=== PATIENT | female | born 1995 ===

== ENCOUNTER 2024-06-20 13:17 | Outpatient (AMB) | payer OTHER, SELFPAY ==
--- NOTE | 2024-06-20 13:24 | A.OFFPC_ITS ---
Vital Signs 06/20/24 13:40 Height 5 ft 1.42 in Weight 164 lb 2 oz BMI 30.6 BP 108/70 Blood Pressure Location Rt brachial Position Sitting Respiration 14 Pulse 72 Pulse Source Pulse Oximeter Temp 99 F Temp Source Oral Pulse Oximetry (%) 97 Oxygen Delivery Method Room Air Intake Visit Reasons: DIRECTOR QUALITY ASSURANCE establish care Intake Note: New pateint visit Federal Appellate Clerk Required: Yes Federal Appellate Clerk Language: Maintainer [employer] Name: 164.2 Allergies No Known Allergies Allergy (Verified 06/20/24 13:33) Medication List - Last Reconciled 06/20/24 by Anay Hernandez PA-C carbamide peroxide 6.5% (Debrox) 5 drps otic (ear) left Q12H 5 days naproxen 500 mg PO Q12H PRN Tobacco use date assessed: 06/20/24 Dental Screening Dental Screen Date: 06/20/24 Did you have a dental visit in the last 12 months?: Yes Did you have a dental problem in the last 6 months where you did not have access to dental care?: No Was dental information given to patient?: Patient has dentist HPI DIRECTOR QUALITY ASSURANCE establish care HPI Details Patient is a 29-year-old female who presents today to establish care. She states she has not had a doctor in 3-4 years. She states that she wants a physical exam. She reports a small scalp lump on the left side of her head. She states it has been there for years and is overall unchanged in size and is non painful. She would like it removed. She states that she made this appointment because she has been having upper-mid back pain x 2 months. No injury. She states the by the end the pain is worse. She has not tried anything for the pain. She denies any radiation of the pain. 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 Her left ear feels clogged. No pain, fever or chills. She states her ear has been intermittently feeling blocked on and off since 2017. [place]: never went Fam hx: denies Federal Appellate Clerk: #[id number] PFSH Medical History (Updated 06/20/24 @ 14:22 by Anay Hernandez PA-C) Hx of bronchitis Family History (Updated 06/20/24 @ 13:47 by Elisabeth Angel CMA) Paternal Grandmother Cancer of unknown origin Paternal Grandfather Cancer of unknown origin Paternal Aunt Cancer of unknown origin Mother Asthma Father Cancer of unknown origin Mother HTN (hypertension) Social History Housing: House Patient Tobacco Use Status: Current everyday Tobacco user Cigarette Packs Per Day: 10 Years Smoked: 16 e-Cigarette/Vaping Use: Never Used service: No Current occupational status: employed Current occupation: [employer] Current occupational exposures/hazards: No Cognitive needs: No Hearing needs: No Vision needs: Yes (Glasses for reading, watching tv) Questionnaire PHQ-9 Over the last 2 weeks, how often have you been bothered by any of the following problems? 1. Little interest or pleasure in doing things: not at all 2. Feeling down, depressed, or hopeless: not at all 3. Trouble falling or staying asleep, or sleeping too much: not at all 4. Feeling tired or having little energy: not at all 5. Poor appetite or overeating: not at all 6. Feeling bad about yourself - or that you are a failure or have let yourself or your family down: not at all 7. Trouble concentrating on things, such as reading the newspaper or watching television: not at all 8. Moving or speaking so slowly that other people could have noticed. Or the opposite - being so fidgety or restless that you have been moving around a lot more than usual: not at all 9. Thoughts that you would be better off or of hurting yourself in some way: not at all Total score: 0 Depression Screening Interpretation: Negative Depression Screening Done: Yes 48975 - PHQ-9 Billing: Yes Source: Developed by Drs. Mendoza Jacob, Juju Vizcaino, Vimal Chan and colleagues, with an educational natasha from [employer]. Thrive Questionnaire Date Thrive assessed: 06/20/24 I am a: Patient What is your living situation today?: I have a steady place to live Within the past 12 months, did the food you bought not last and you didn't have the money to get more?: Never true Within the past 12 months, did you worry whether your food would run out before you got money to buy more?: Never true Do you have trouble paying for medicines?: No Do you have trouble getting transportation to medical appointments?: No Do you have trouble paying your heating and electricity bill?: No Do you have trouble taking care of your child, family member or friend?: No Do you have trouble with day-to-day activities such as bathing, preparing meals, shopping, managing finances, etc.?: No Are you currently unemployed and looking for a job?: No Are you interested in more education?: Yes Please select the resources that you would like help with: None Currently or been in a relationship where the following occur: No concerns reported THRIVE Score: 0 AUDIT C Alcohol Use Questionnaire (AUDIT-C) 1. How often do you have a drink containing alcohol?: Monthly or less 2. How many drinks containing alcohol do you have on a typical day when you are drinking?: 10 or more 3. How often do you have six or more drinks on one occasion?: Less than monthly Total Score: 6 JENI-7 AMB Questionnaire JENI-7 Date JENI - 7 assessed: 06/20/24 Feeling nervous, anxious, or on edge: 0 = Not at all Not being able to stop or control worryin = Not at all Worrying too much about different things: 1 = Several days Trouble relaxin = Several days Being so restless that it is hard to sit still: 2 = More than half the days Becoming easily annoyed or irritable: 0 = Not at all Feeling afraid as if something awful might happen: 0 = Not at all Total JENI-7 score (0-4 normal; 5-9 mild; 10-14 moderate; 15-21 severe): 4 Source: Developed by Drs. Mendoza Jacob, Juju Vizcaino, Vimal Chan and colleagues, with an educational natasha from [employer]. JENI-7 Assessment Billing JENI-7 Assessment Tool: JENI-7 Assessment 64240 Physical exam (Primary Care) Vital Signs: Last Vital Signs Temp 99 F 06/20/24 13:40 Pulse 72 06/20/24 13:40 Resp 14 06/20/24 13:40 BP 108/70 06/20/24 13:40 Pulse Ox 97 06/20/24 13:40 Oxygen Delivery Method Room Air 06/20/24 13:40 BMI result Body Mass Index 30.6 Depression Screening Interpretation: Negative Currently or been in a relationship where the following occur: No concerns reported Const Orientation/consciousness: patient oriented x3 HENMT Ears: hearing grossly normal bilaterally, TM normal on the right and unable to visualize TM (cerumen) on the left General nose exam: No nasal polyps present Face and sinus: Yes sinuses nontender Mouth: Normal oral and palatal mucosa present Eyes Pupils: Equal, round and reactive pupils present EOM: EOMs intact bilaterally Neck Neck: Yes full ROM and Yes no lymphadenopathy Thyroid: Thyroid normal Lymphatic: no lymphadenopathy noted Chest Chest palpation & inspection: normal inspection of the chest Resp Auscultation: clear to auscultation bilaterally Cardio Rate: regular rate Rhythm: regular rhythm Heart sounds: S1 normal heart sound present and S2 normal heart sound present Peripheral pulses: Peripheral pulses 2+ throughout GI Other: Soft, nontender Inspection: Yes normal to inspection Palpation (GI): Soft to palpation and Other GI palpation findings present (nontender, no cva tenderness) Auscultation: normoactive bowel sounds Rectal Exam - Female: deferred General: Yes no CVA tenderness Back/Spine/Pelvis Other: Nontender Back: no CVA tenderness Cervical Spine: cervical ROM normal Thoracic/Lumbar Spine: thoracic and lumbar spine normal to inspection, straight leg raise negative bilaterally and paraspinal muscle tenderness bilaterally in the upper thoracic, in the mid thoracic and in the lower thoracic Skin Other: There is a marble sized, mobile, fluid filled, subcutaneous lump noted on the left scalp General skin exam: no rashes or lesions noted Neuro General: patient oriented x3, gait normal and no focal motor deficits Cranial nerves: Yes Equal, round and reactive pupils present Motor exam (neuro): 5/5 motor strength present throughout Sensory Exam: double simultaneous stimulation for sensation normal Coordination: [id number] test normal and Romberg test negative Extrem General: Yes normal to inspection and Yes full ROM Psych Affect: normal affect Attitude: cooperative Thought process: Normal thought process present Thought content: Normal thought content present Insight: Good insight present (Psych) Judgement: Good judgement present (Psych) Coding Level of Care Code New Pt Prev Care 18-39yr(38469 Diagnoses Routine general medical examination at a health care facility Z00.00 Thoracic back pain M54.6 Lump of scalp R22.0 Impacted cerumen of left ear H61.22 Additional Codes JENI-7 Assessment Billing - JENI-7 Assessment Tool: JENI-7 Assessment 27562 ([id number]) Assessment & Plan Assessment & Plan (1) Routine general medical examination at a health care facility: Code(s): Z00.00 - Encounter for general adult medical examination without abnormal findings Plan: Health maintenance reviewed. Referral to certified adapted physical educator. Labs ordered today. I did spend more than an hour and 15 minutes in the room with her today. (2) Thoracic back pain: Code(s): M54.6 - Pain in thoracic spine Category: Medical Plan: X-ray ordered. We will try naproxen. I have encouraged stretching, massage therapy and follow up if anything worsens or changes or fails to improve. We will do a short term follow up (3) Lump of scalp: Code(s): R22.0 - Localized swelling, mass and lump, head Category: Medical Plan: Discussed with her that it does feel cystic. Referral to General surgery. (4) Impacted cerumen of left ear: Code(s): H61.22 - Impacted cerumen, left ear Category: Medical Plan: Debrox drops ordered. Follow up if no improvement or if anything worsens or changes. Orders: Orders XR thoracic spine 3V Today M54.6 - Pain in thoracic spine Comprehensive Met. Panel Today Z01.89 - Encounter for other specified special examinations Comprehensive [place]. Panel Fast Today Z01.89 - Encounter for other specified special examinations Lipid Panel Today Z01.89 - Encounter for other specified special examinations TSH reflex Free T4 Today Z01.89 - Encounter for other specified special examinations Referrals FIGURE SKATER Referral Z01.419 - Encounter for gynecological examination (general) (routine) without abnormal findings, Z01.89 - Encounter for other specified special examinations General Surgery Referral R22.0 - Localized swelling, mass and lump, head Medications: New carbamide peroxide 6.5% (Debrox) 5 drps otic (ear) left Q12H 5 days 15 mL 0RF naproxen 500 mg PO Q12H PRN 30 tabs 1RF pain
[2024-06-20 13:40] VITALS: BP 108/70; PULSE 72; RESP 14; TEMP 37.2; O2SAT 97; BMI 30.6
== END 2024-06-20 14:26 | disposition home or self-care (01) ==
PROVIDERS: PCP Physician Assistant; Visit Provider Physician Assistant
DX: Z00.00 Encounter for general adult medical examination without abnormal findings (principal); M54.6 Pain in thoracic spine; R22.0 Localized swelling, mass and lump, head; H61.22 Impacted cerumen, left ear

== ENCOUNTER → 2024-06-20 13:17 | Outpatient (BNVA) | payer OTHER, SELFPAY | PROVIDERS: PCP Physician Assistant; Visit Provider Physician Assistant | DX: Z00.01 Encounter for general adult medical examination with abnormal findings (principal); M54.6 Pain in thoracic spine; R22.0 Localized swelling, mass and lump, head; H61.22 Impacted cerumen, left ear | CPT/HCPCS: 96127 ==

== ENCOUNTER 2024-07-08 14:23 | Outpatient (REF) | payer OTHER, SELFPAY ==
[2024-07-08 16:48] LABS: Alanine Aminotransferase 24 U/L (0-31); Albumin Level 4.9 g/dL (3.5-5.0); Alkaline Phosphatase 54 U/L (39-117); Anion Gap 11 (12-20); Aspartate Amino Transferase 28 U/L (5-31); Bilirubin Total 0.9 mg/dL (0.0-1.0); Blood Urea Nitrogen 10 mg/dL (9-16); Calcium 9.5 mg/dL (8.4-10.2); Carbon Dioxide 29 mmol/L (22-29); Chloride 105 mmol/L (96-108); Cholesterol 120 mg/dL (<200); Estimated Glomerular Filt Rate > 60; Glucose Fasting 77 mg/dL (60-99); Glucose Random 75 mg/dL (60-115); HDL Cholesterol 46 mg/dL (>40); LDL Cholesterol Calculated 56 mg/dL (<100); Potassium 3.8 mmol/L (3.3-5.1); Sodium 141 mmol/L (135-145); Total Protein 8.2 g/dL (6.5-8.0); Triglycerides 92 mg/dL (<150)
[2024-07-08 17:04] LABS: TSH reflex Free T4 0.44 uIU/mL (0.32-4.0)
== END 2024-07-08 14:24 | disposition home or self-care (01) ==
LOC: HO.XRAY 14:23
PROVIDERS: PCP Physician Assistant; Visit Provider Physician Assistant
DX: Z01.89 Encounter for other specified special examinations (principal); Z13.6 Encounter for screening for cardiovascular disorders; M54.6 Pain in thoracic spine
CPT/HCPCS: 36415; 72072; 80053; 80061; 84443

== ENCOUNTER 2024-10-23 08:33 | Outpatient (AMB) | payer OTHER, SELFPAY ==
--- OUTSIDE RECORDS SUMMARY | 2024-10-23 08:36 | XMS_ITS | Clinical Summary ---
Author Organization [facility] ity Address [address] [place] [address] Care Team Providers Care Corporate Controller Name Role Phone Unavailable Primary Care Provider Unavailabl e Social History Tobacco Use Types Packs/Day Years Used Date Smoking Tobacco: Never Assessed Sex and Gender Information Value Date Recorded Sex Assigned at Not on file Gender Identity Not on file Sexual Orientation Not on file Plan of Treatment Health Maintenance Due Date Last Done Comments DTaP,Tdap,and Td Vaccines (1 - Tdap) 2013 Hepatitis B Vaccines (1 of 3 - 19+ 3-dose series) 2013 Cervical Cancer Screening: P ap Smear 2015 COVID-19 Vaccine (2023-2 5 season) 2024 Influenza Vaccine (#1) 2024 Depression Screening 06/27/2024 HIV Screening 06/27/2024 Hepatitis C Screening 06/27/2024 Social Influencers of Health Screening 06/27/2024 HIB Vaccines Aged Out No longer eligi ble based on patient's age to complete this topic HPV Vaccines Aged Out No longer eligi ble based on patient's age to complete this topic Hepatitis A Vaccines Aged Out No long er eligible based on patient's age to complete this topic IPV Vaccines Aged Out No longer eligi ble based on patient's age to complete this topic MMR Vaccines Aged Out No longer eligi ble based on patient's age to complete this topic Meningococcal ACWY Vaccine Aged Out N o longer eligible based on patient's age to complete this topic Pneumococcal Vaccine: Pediat rics (0 to 5 Years) and At-Risk Patients (6 to 64 Years) Aged Out No longer eligible b ased on patient's age to complete this topic RSV Immunization Patients Un duglas 20 months Aged Out No longer eligible b ased on patient's age to complete this topic Varicella Vaccines Aged Out No longer eligible based on patient's age to complete this topic
--- NOTE | 2024-10-23 08:52 | A.OFFVIS_ITS ---
Vital Signs 10/23/24 08:54 Height 5 ft 1 in Weight 164 lb BMI 31.0 BP 110/72 Blood Pressure Location Rt brachial Position Sitting Pulse 72 Intake Visit Reasons: lump left side of scalp Intake Note: Patient referred by pcp Anay Hernandez PA-C for cyst on Lt scalp. Present since 2014 Patient c/o: denies pain, oozing. Bothersome when wearing hats. 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 The patient has a cyst on left side of her scalp/temporal. She has had this many years time. It is increasing in size, become more symptomatic. He would like to have removed. She has no such cysts elsewhere. Chart was reviewed and patient evaluated [facility] Medical History Hx of bronchitis Family History Paternal Grandmother Cancer of unknown origin Paternal Grandfather Cancer of unknown origin Paternal Aunt Cancer of unknown origin Mother Asthma Father Cancer of unknown origin Mother HTN (hypertension) Social History Housing: House Patient Tobacco Use Status: Current everyday Tobacco user Cigarette Packs Per Day: 10 Years Smoked: 16 e-Cigarette/Vaping Use: Never Used service: No Current occupational status: employed Current occupation: [employer] Current occupational exposures/hazards: No Cognitive needs: No Hearing needs: No Vision needs: Yes (Glasses for reading, watching tv) Physical Exam Vital Signs: Last Vital Signs Pulse 72 10/23/24 08:54 BP 110/72 10/23/24 08:54 BMI result Body Mass Index 31.0 HEENT Other: Patient was a roughly 3 x 2 cm left temporal pilar cyst/scalp rico Office Procedures Excision Details: Risks, benefits, alternatives of excision of left temporal scalp pilar cyst were reviewed with the patient and included but not limited to bleeding, infection, recurrence, numbness, pain, scarring the patient wished to proceed. All questions answered. Consent signed. After appropriate positioning, patient underwent 1% lidocaine and Betadine prep. A transverse incision was made over the cyst in question and carried down through skin, subcutaneous tissue, where the sebaceous cyst was uneventfully enucleated. Specimen sent to pathology. Wound was irrigated, secured hemostasis, and closed using interrupted 3-0 Prolene sutures followed by bacitracin. Patient tolerated procedure well. 45757-[place] scalp/neck/hands/feet/genitalia 2.1cm-3cm Procedure code (CPT) selection complete Office Meds lidocaine 1 %-epinephrine 1:100,000 injection solution Performing Provider: Jhony Dunlap MD Performing Location: [facility] [place] [facility] Administered by: Jhony Dunlap MD on 10/23/24 09:19 Dose Route Admin Location Dispensed Lot Number Expiration Date NDC Credit Historian 10 mL Infiltration 10 mL Assessment & Plan Assessment & Plan (1) Pilar cyst of scalp: Code(s): L72.11 - Pilar cyst Category: Surgical Plan: Patient was been given local instructions including ice periodically today and tomorrow, bacitracin each day, Tylenol Motrin for pain, and patient will see me as directed or p.r.n.. Orders: Orders AMB Excision Today L72.11 - Pilar cyst Medications: New lidocaine-epinephrine 1 %-1:100,000 10 mL Infiltration ONCE 30 mL 0RF L72.11 - Pilar cyst Coding Level of Care Code New Pt Level 5 (72019) Diagnoses Pilar cyst of scalp L72.11 CPT Codes Scalp/Neck/Hands/Feet/Genetalia - CPT: 20958-[id number] scalp/neck/hands/feet/genitalia 2.1cm-3cm ([id number])
[2024-10-23 08:54] VITALS: BP 110/72; PULSE 72; BMI 31.0
== END 2024-10-23 09:00 | disposition home or self-care (01) ==
PROVIDERS: PCP Physician Assistant; Visit Provider Surgery
DX: L72.11 Pilar cyst (principal)
CPT/HCPCS: 11421; 99204

== ENCOUNTER 2024-10-23 08:33 | Outpatient (REF) | payer OTHER, SELFPAY ==
--- OUTSIDE RECORDS SUMMARY | 2024-10-23 10:35 | XMS_ITS | Clinical Summary ---
Author Organization [facility] ity Address [address] [place] [address] Care Team Providers Care Soaping Machine Back Tender Name Role Phone Unavailable Primary Care Provider [...]
== END 2024-10-23 08:34 | disposition home or self-care (01) ==
LOC: HO.LNP 08:33
PROVIDERS: PCP Physician Assistant; Visit Provider Surgery
DX: L72.11 Pilar cyst (principal)
CPT/HCPCS: 11421; 88304

== ENCOUNTER 2024-11-05 09:03 | Outpatient (AMB) | payer OTHER, SELFPAY ==
--- NOTE | 2024-11-05 09:04 | A.OFFVIS_ITS ---
Intake Visit Reasons: s/p excision lump left side of scalp Intake Note: Patient here s/p WLE pilar cyst on Lt post scalp. Reports incision healing well. Patient c/o: itch along scar line. 2 sutures removed without incident. WLE: 10-23-2024 On Site Manager Required: No Accompanied by: Self / Same As Patient Allergies No Known Allergies Allergy (Verified 11/05/24 09:05) HPI Comments Details: Patient was for follow-up with a significant other. No wound issues or complaints. Pathology is benign. PFSH Medical History Hx of bronchitis Surgical History (Updated 11/05/24 @ 09:28 by Jhony Dunlap MD) Hx of surgical procedure (10/23/24) Family History Paternal Grandmother Cancer of unknown origin Paternal Grandfather Cancer of unknown origin Paternal Aunt Cancer of unknown origin Mother Asthma Father Cancer of unknown origin Mother HTN (hypertension) Social History Housing: House Patient Tobacco Use Status: Current everyday Tobacco user Cigarette Packs Per Day: 10 Years Smoked: 16 e-Cigarette/Vaping Use: Never Used service: No Current occupational status: employed Current occupation: [employer] Current occupational exposures/hazards: No Cognitive needs: No Hearing needs: No Vision needs: Yes (Glasses for reading, watching tv) Physical Exam HEENT Other: Wound healing uneventfully. Sutures removed the instrument. Assessment & Plan Assessment & Plan (1) Visit for wound check: Code(s): Z51.89 - Encounter for other specified aftercare Category: Surgical Plan Patient was been given local instructions, and will otherwise follow-up p.r.n.. All questions answered Coding Level of Care Code Global (20355) Diagnoses Visit for wound check Z51.89
--- OUTSIDE RECORDS SUMMARY | 2024-11-05 09:35 | XMS_ITS | Clinical Summary ---
Author Organization [facility] Address [address] [place] [address] Care Team Providers Care Mathematics Education Professor Name Role Phone Unavailable Primary Care Provider Unavailabl e Social History Tobacco Use Types Packs/Day Years Used Date Smoking Tobacco: Never Assessed Comments Unknown Sex and Gender Information Value Date Recorded Sex Assigned at Not on file Legal Sex Female 12:20 AM EST Gender Identity Not on file Sexual Orientation Not on file Plan of Treatment Health Maintenance Due Date Last Done Comments DTaP,Tdap,and Td Vaccines (1 - Tdap) 2013 Hepatitis B Vaccines (1 of 3 - 19+ 3-dose series) 2013 Cervical Cancer Screening: P ap Smear 2015 COVID-19 Vaccine ( - 2023-2 5 season) 2024 Influenza Vaccine (#1) 2024 [...] patient's age to complete this topic Meningococcal B Vacine Aged Out No lo nger eligible based on patient's age to complete [...]
== END 2024-11-05 09:32 | disposition home or self-care (01) ==
PROVIDERS: PCP Physician Assistant; Visit Provider Surgery
DX: Z51.89 Encounter for other specified aftercare (principal)
CPT/HCPCS: 99024

== ENCOUNTER → 2024-11-05 09:03 | Outpatient (BNVA) | payer OTHER, SELFPAY | PROVIDERS: PCP Physician Assistant; Visit Provider Surgery ==